=== PATIENT | male | born 1995 | race Two or more races ===

== ENCOUNTER 2020-05-10 21:50 | Emergency (ER) | payer OTHER ==
[~2020-05-10] VITALS: Ht 172.7 cm; Wt 133.5 kg
--- NOTE | 2020-05-10 22:00 | NUR ---
EKG IN TRIAGE
--- NOTE | 2020-05-10 22:09 | NUR ---
PT STATES HAVING SOME CHEST PAIN EALIE TODAY. PT STATED DRINKING ABOUT 5 SHOTS OF HENNESY, AND EATING MULTIPLE MARIJUANA EDIBLES. PT STATES HE HAS HAD SIMILAR ISSUES IN THE PAST AFTE SMOKING MARIJUANA AND DRINKING. PT STATES NO CP AT THIS TIME BUT STATES HAVING A HEADACHE. PT VERY RESTLESS IN [facility], AND IS GFEELING NAUSEOUS. PT PLACED ON ALL MONITORS, SAFETY MEASURES IN PLACE, ERP AT [facility] FOR EVAL
[2020-05-10] MEDS ORDERED: ONDANSETRON ODT 4 MG ONE (22:29)
[2020-05-10] MEDS ORDERED: ONDANSETRON ODT 4 MG PO ONE (22:30)
--- NOTE | 2020-05-10 22:34 | NUR ---
PT MEDICATED PER EMAR, GIVEN SOME WATER. PT ABLE TO TOLERATE PO INTAKE AT THIS TIME.
[2020-05-11 01:14] VITALS: BP 105/60
== END 2020-05-11 01:28 | disposition home or self-care (01) ==
LOC: ED 22:20
DX: R07.89 Other chest pain (principal); F10.120 Alcohol abuse with intoxication, uncomplicated; R06.02 Shortness of breath; R11.0 Nausea; R51.9 Headache, unspecified; R00.0 Tachycardia, unspecified; F17.210 Nicotine dependence, cigarettes, uncomplicated; Y90.0 Blood alcohol level of less than 20 mg/100 ml
CPT/HCPCS: 71045; 93005; 99283; 99406; Q0162